=== PATIENT | female | born 2000 | race Two or more races ===

== ENCOUNTER 2024-11-29 03:16 | Emergency (ER) | payer BC, OTHER ==
[~2024-11-29] VITALS: Ht 157.5 cm; Wt 44.3 kg
--- NOTE | 2024-11-29 04:57 | ED.PDOC ---
Eye-HPI HPI Comments Pt arrived in ER due to nose pain post rhinoplasty on tuesday. Per pt prescribed opioid not working for her. pt in 06/14 nose pain. VSS. Pt stated she went to another ER yesterday in the [place] and they gave her a dilaudid shot and was wondering if she can get more. No resp distress noted. Chief Complaint: Face pain Time Seen by MD: 03:37 Reviewed Notes: Nurses Notes, Medications, Allergies Allergies: Coded Allergies: NO KNOWN ALLERGIES (Unverified , 11/29/24) Information Source: Patient Mode of Arrival: Ambulatory Constitutional: denies: chills, diaphoresis, fatigue, fever, malaise, sweats, weakness, others EENTM: reports: nose pain; denies: blurred vision, double vision, ear bleeding, ear discharge, ear drainage, ear pain, ear ringing, eye pain, eye redness, hea ring loss, mouth pain, mouth swelling, nasal discharge, nose bleeding, nose congestion, photophobia, tearing, throat pain, throat swelling, voice changes, others Respiratory: denies: cough, hemoptysis, orthopnea, SOB at rest, shortness of breath, SOB with excertion, stridor, wheezing, others Cardiovascular: denies: chest pain, dizzy spells, diaphoresis, Dyspnea on exertion, edema, irregular heart beat, left arm pain, lightheadedness, palpitations, PND, syncope, others Gastrointestinal: denies: abdomen distended, abdominal pain, blood streaked bowels, constipated, diarrhea, dysphagia, difficulty swallowing, hematemesis, melena, nausea, poor appetite, poor fluid intake, rectal bleeding, rectal pain, vomiting, others Genitourinary: denies: abnormal vagina bleeding, burning, dyspareunia, dysuria, flank pain, frequency, hematuria, incontinence, pain, , vagina discharge, urgency, others Neurological: denies: dizziness, fainting, headache, left sided numbness, left sided weakness, numbness, paresthesia, pre-existing deficit, right sided numbness, right sided weakness, seizure, speech problems, tingling, tremors, weakness, others Musculoskeletal: denies: back pain, gout, joint pain, joint swelling, muscle pain, muscle stiffness, neck pain, others Integumetry: denies: bruises, change in color, change in hair/nails, dryness, laceration, lesions, lumps, rash, wounds, others Allergic/Immunocompromised: denies: Difficulty Healing, Frequent Infections, Hives, Itching, others Hematologic/Lymphatic: denies: anemia, blood clots, easy bleeding, easy bruising, swollen glands, others Endocrine: denies: excessive hunger, excessive sweating, excessive thirst, excessive urination, flushing, intolerance to cold, intolerance to heat, unexplained weight gain, unexplained weight loss, others Psychiatric: denies: anxiety, bipolar disorder, depression, hopeless, panic disorder, schizophrenia, sleepless, suicidal, others Physical Exam General Appearance: No Apparent Distress, Normal HEENT: Pharynx Normal, TMs Normal, Other (AGAIN AND DRESSING CLEAN DRY AND INTACT NO NOTED BLEEDING MODERATE EDEMA ABOUT NOSE) Neck: Full Range of Motion, Non-Tender Respiratory: Chest Non-Tender, Lungs Clear, No Accessory Muscle Use, No Respiratory Distress, Normal Breath Sounds Cardiovascular: No Edema, No JVD, No Murmur, No Gallop, Normal Peripheral Pulses, Regular Rate/Rhythm Breast Exam: Deferred Gastrointestinal: No Organomegaly, Non Tender, No Pulsatile Mass, Normal Bowel Sounds, Soft Genitalia: Deferred Pelvic: Deferred Rectal: Deferred Extremities: No calf tenderness, Normal capillary refill, Normal inspection, Normal range of motion, Non-tender, No pedal edema Musculoskeletal : Apperance: Normal Neurologic: Alert, roofer II-XII nml as Tested, No Motor Deficits, Normal Affect, Normal Mood, No Sensory Deficits Cerebellar Function: Normal Reflexes: Normal Skin: Dry, Normal Color, Warm Lymphatic: No Adenopathy Was a procedure done? Was a procedure done?: No EENT DIFF Eye: N/A Ear: N/A Nose: Anterior Nasal Bleed, Posterior Nasal Bleed X-Ray, Labs, Meds, VS Vital Signs Date Time Temp Pulse Resp B/P (MAP) Pulse Ox O2 Delivery O2 Flow Rate FiO2 11/29/24 05:36 99.0 98 20 112/75 (87) 97 99.0 11/29/24 05:27 87 20 112/75 11/29/24 05:24 98.7 86 16 112/75 (87) 98 98.7 11/29/24 03:40 99.0 110 20 114/76 (89) 97 99.0 Lab Test 11/29/24 05:15 Range/Units POC Glucose 120 H 70-106 mg/dl X-Ray, Labs, Meds, VS Comment PATIENT GIVEN MORPHINE 1 MG IM, TORADOL 60 MG IM, , BENADRYL DEXAMETHASONE 10 MG IM. PATIENT REPORTS IMPROVEMENT IN PAIN REQUESTING DISCHARGE AT THIS TIME. ADVISED WHEN SHE GETS BACK TO [facility] TO FOLLOW UP WITH HER SURGEON FOR CONTINUED CARE RE-EVALUATION. ER RETURN PRECAUTIONS GIVEN PATIENT INDICATES UNDERSTANDING AGREES WITH DISCHARGE PLAN OF CARE. Time of 1ST Reevaluation: 04:57 Reevaluation 1ST: Improved Patient Education/Counseling: Diagnosis, Treatment, Prognosis, Need For Follow Up Family Education/Counseling: Diagnosis, Treatment, Prognosis, Need For Follow U p Departure 1 Departure Time of Disposition: 04:57 Impression: Primary Impression: S/P rhinoplasty Disposition: 01 HOME / SELF CARE / HOMELESS Condition: Stable Discharged With: Significant Other Critical Care Note Critical Care Time?: No Stability Stability form required: KIERSTEN Beverly Nov 29, 2024 04:57
[2024-11-29] MEDS: KETOROLAC TROMETH 60MG/2ML VIAL IM ONE (05:18)
[2024-11-29] MEDS: MORPHINE SULFATE INJ 2 MG/ml SYRG IM ONE (05:27)
[2024-11-29 05:36] VITALS: BP 112/75; PULSE 98; RESP 20; TEMP 99; O2SAT 97
[2024-11-29] MEDS: diphenhdrAMINE HCL 50 MG/1 ML VL IM ONE (05:54)
[2024-11-29] MEDS: DexAMETHasone SOD PHOS 10MG/1ML VIAL INJ IM ONE (05:54)
== END 2024-11-29 05:52 | disposition home or self-care (01) ==
LOC: ER 03:16
DX: G89.18 Other acute postprocedural pain (principal)
CPT/HCPCS: 82947; 96372; 99284; J1100; J1200; J1885; J2270; 82962